=== PATIENT | female | born 1980 ===

== ENCOUNTER 2020-09-26 17:26 | Observation (INO) | payer OTHER ==
[~2020-09-26] VITALS: Ht 167.6 cm; Wt 127.0 kg
[2020-09-26] MEDS ORDERED: VALIUM 2 MG TAB2 MG PO (17:46)
[2020-09-26] MEDS ORDERED: VRAYLAR3 MG PO (17:46)
[2020-09-26] MEDS ORDERED: BENTYL10 MG PO (17:46)
[2020-09-26 18:24] LABS: BASOPHILS 0.1 % (0-2); EOSINOPHILS 0.1 % (0-7); HEMATOCRIT 50.1 % (36.0-48.0); HEMOGLOBIN 17.1 g/dL (12-16); LYMPHOCYTE ABS# 1.82 10x3/uL (1.18-3.74); LYMPHOCYTES 13.1 % (15-50); MCH 32.4 pg (26.0-34.0); MCHC 34.1 g/dL (31.0-37.0); MCV 95.1 fL (80.0-100.0); MEAN PLATELET VOLUME 10.2 fL (7.4-10.4); MONOCYTES 2.3 % (2-11); NEUTROPHIL ABS# 11.63 10x3/uL (1.56-6.13); NEUTROPHILS 83.4 % (40-80); RBC 5.27 10x6/uL (4.00-5.40); RDW 12.5 % (11.5-14.5); WBC 13.9 10x3/uL (4.8-10.8)
[2020-09-26 18:25] LABS: PLATELET COUNT 302 10x3/uL (130-400)
[2020-09-26 18:36] LABS: CALC OSMOLALITY 269 mosm/kg (275-300); CALCIUM 9.3 mg/dL (8.5-10.1); CARBON DIOXIDE 26.2 mmol/L (21.0-32.0); CHLORIDE - SERUM 97 mmol/L (98-107); POTASSIUM - SERUM 3.5 mmol/L (3.5-5.1); SODIUM 134 mmol/L (136-145); UREA NITROGEN 10 mg/dL (7-18); eGFR NON AFRICAN AMERICAN 65 mL/min (90-120)
[2020-09-26 18:39] LABS: GLUCOSE 147 mg/dL (74-106)
[2020-09-26 18:41] LABS: ALKALINE PHOSPHATASE 75 U/L (30-120); ALT (SGPT) 68 U/L (10-68); AMYLASE - SERUM 47 U/L (25-115); BILIRUBIN - TOTAL 0.48 mg/dL (0.2-1.3); LIPASE 63 U/L (73-393)
[2020-09-26 18:42] LABS: TROPONIN-I < 0.017 ng/mL (0.000-0.060)
[2020-09-26 19:01] VITALS: BP 177/92
[2020-09-26 20:11] LABS: BILIRUBIN NEGATIVE (NEGATIVE); KETONE LARGE mg/dL (NEGATIVE); NITRITE NEGATIVE (NEGATIVE); UROBILINOGEN NORMAL mg/dL (< 2)
[2020-09-26 20:12] LABS: BACTERIA FEW HPF (NONE SEEN); SQUAMOUS EPITHELIAL 0-5 HPF (0-4); WHITE CELLS - URINE 0-5 HPF (0-4)
[2020-09-26] MEDS ORDERED: ZOFRAN ODT4 MG/UDTAB PO (20:25)
[2020-09-26 20:31] VITALS: BP 183/96
[2020-09-26 20:56] LABS: HCG URINE NEGATIVE (NEGATIVE)
[2020-09-26 21:31] VITALS: BP 178/87
[2020-09-26 22:01] VITALS: BP 166/64
--- NOTE | 2020-09-26 23:30 | NUR ---
PATIENT CONTINUES TO HAVE N/V. NEW ORDERS RECIEVED FOR ZOFRAN DRIP AND PHENERGAN AND GIVEN
[2020-09-26 23:31] VITALS: BP 146/81
--- NOTE | 2020-09-27 02:51 | NUR ---
REPORT GIVEN TO [employer]
[2020-09-27 03:50] VITALS: BP 146/81; BMI 45.3
[2020-09-27 05:20] LABS: BASOPHILS 0.1 % (0-2); EOSINOPHILS 0 % (0-7); HEMATOCRIT 44.2 % (36.0-48.0); HEMOGLOBIN 14.9 g/dL (12-16); IMMATURE GRANULOCYTES 0.9 % (0-5); LYMPHOCYTE ABS# 3.63 10x3/uL (1.18-3.74); LYMPHOCYTES 24.2 % (15-50); MCHC 33.7 g/dL (31.0-37.0); MCV 95.1 fL (80.0-100.0); MEAN PLATELET VOLUME 10.5 fL (7.4-10.4); MONOCYTES 6.7 % (2-11); NEUTROPHIL ABS# 10.23 10x3/uL (1.56-6.13); NEUTROPHILS 68.1 % (40-80); PLATELET COUNT 310 10x3/uL (130-400); RBC 4.65 10x6/uL (4.00-5.40); RDW 12.6 % (11.5-14.5)
[2020-09-27 05:36] LABS: APTT 27.6 SECONDS (22.8-39.4); INR 1.13 (0.85-1.17); PROTIME 13.4 SECONDS (11.6-15.0)
[2020-09-27 05:44] LABS: ALBUMIN 3.3 g/dL (3.4-5.0); ANION GAP 14.3 mmol/L (8-16); BILIRUBIN - TOTAL 0.51 mg/dL (0.2-1.3); CARBON DIOXIDE 24.8 mmol/L (21.0-32.0); CREATININE - SERUM 0.9 mg/dL (0.6-1.3); MAGNESIUM - SERUM 1.9 mg/dL (1.8-2.4); POTASSIUM - SERUM 3.1 mmol/L (3.5-5.1); PROTEIN - SERUM 6.8 g/dL (6.4-8.2)
[2020-09-27 08:03] VITALS: BP 158/94
[2020-09-27 12:01] VITALS: BP 183/76
[2020-09-27 12:15] LABS: UDS - AMPHET NEGATIVE QUAL (NEGATIVE); UDS - BARB NEGATIVE QUAL (NEGATIVE); UDS - BENZO NEGATIVE QUAL (NEGATIVE); UDS - COCAINE NEGATIVE QUAL (NEGATIVE); UDS - OPIATE NEGATIVE QUAL (NEGATIVE); UDS - PCP NEGATIVE QUAL (NEGATIVE); UDS - THC POSITIVE QUAL (NEGATIVE)
--- NOTE | 2020-09-27 12:18 | NUR ---
PATIENT LYING SEMI FOWLERS AAOX4, NO S/S OF DISTRESS, RESP EVEN AND NON LABORED, MEDICATIONS ADMINISTERED WITH NO COMPLICATIONS, NO NEEDS AT THIS TIME, CLIR, BLP
[2020-09-27 12:43] VITALS: BMI 45.2
[2020-09-27 15:58] VITALS: BP 129/66
--- NOTE | 2020-09-27 18:00 | NUR ---
I have reviewed this patient and I concur with the Shift Assessment completed by the Licensed Practical Nurse today this shift.
--- NOTE | 2020-09-27 19:30 | NUR ---
RECEIVED REPORT, WILL ASSUME CARE OF PT, ASKING TO TAKE SHOWER, DISCONNECTED IV, WRAP IV, WILL CONTINUE PLAN OF CARE
[2020-09-27 19:57] VITALS: Ht 167.6 cm; Wt 127.0 kg
[2020-09-27 20:09] VITALS: BP 146/82
--- NOTE | 2020-09-27 22:55 | NUR ---
REVIEWED PT LABS K+3.1, FOLLOWED PROTCOL, WILL PLACE ON TELEMTRY ORDERED
[2020-09-28 01:28] VITALS: BP 129/73
--- NOTE | 2020-09-28 02:53 | NUR ---
I have reviewed this patient and I concur with the Shift Assessment completed by the Licensed Practical Nurse today this shift.
[2020-09-28 05:00] LABS: BASOPHILS 0.1 % (0-2); EOSINOPHILS 0.5 % (0-7); HEMOGLOBIN 13.7 g/dL (12-16); IMMATURE GRANULOCYTES 0.8 % (0-5); LYMPHOCYTES 47.1 % (15-50); MCH 32.1 pg (26.0-34.0); MCHC 33.4 g/dL (31.0-37.0); MEAN PLATELET VOLUME 10.2 fL (7.4-10.4); MONOCYTES 9.2 % (2-11); NEUTROPHIL ABS# 3.68 10x3/uL (1.56-6.13); NEUTROPHILS 42.3 % (40-80); RBC 4.27 10x6/uL (4.00-5.40); RDW 12.9 % (11.5-14.5)
[2020-09-28 05:07] LABS: PLATELET COUNT 246 10x3/uL (130-400); WBC 8.7 10x3/uL (4.8-10.8)
[2020-09-28 05:29] VITALS: BP 119/60
[2020-09-28 05:29] LABS: ALBUMIN 2.8 g/dL (3.4-5.0); ALKALINE PHOSPHATASE 50 U/L (30-120); ALT (SGPT) 62 U/L (10-68); BILIRUBIN - TOTAL 0.45 mg/dL (0.2-1.3); CALC OSMOLALITY 275 mosm/kg (275-300); CALCIUM 8.2 mg/dL (8.5-10.1); CARBON DIOXIDE 23.4 mmol/L (21.0-32.0); CHLORIDE - SERUM 108 mmol/L (98-107); CREATININE - SERUM 0.8 mg/dL (0.6-1.3); GLUCOSE 97 mg/dL (74-106); MAGNESIUM - SERUM 2.1 mg/dL (1.8-2.4); POTASSIUM - SERUM 3.5 mmol/L (3.5-5.1); PROTEIN - SERUM 5.8 g/dL (6.4-8.2); SODIUM 140 mmol/L (136-145); UREA NITROGEN 5 mg/dL (7-18); eGFR NON AFRICAN AMERICAN 84 mL/min (90-120)
--- NOTE | 2020-09-28 06:36 | NUR ---
I have reviewed this patient and I concur with the Shift Assessment completed by the Licensed Practical Nurse today this shift.
[2020-09-28 08:00] VITALS: BP 130/69
[2020-09-28 08:13] LABS: HEPATITIS C ANTIBODY <0.1 (0.0-0.9)
[2020-09-28 11:00] VITALS: BP 143/77
--- NOTE | 2020-09-28 12:32 | NUR ---
I have reviewed this patient and I concur with the Shift Assessment completed by the Licensed Practical Nurse today this shift.
--- NOTE | 2020-09-28 14:11 | NUR ---
PATIENT AAOX4, RESP EVEN AND NON LABORED, NO S/S OF DISTRESS, PATIENT STATES SHE FEELS BETTER TODAY AND HAS BEEN ABLE TO KEEP FOOD AND LIQUIDS DOWN, PATIENT IS NPO FOR EGD TODAY, IV MEDICATIONS ADMINISTERED, NO FURTHER NEEDS AT THIS TIME, PRISCILLA SANCHEZ
[2020-09-28] MEDS ORDERED: CARAFATE1 G PO (15:42)
[2020-09-28] MEDS ORDERED: NEXIUM40 MG PO (15:42)
[2020-09-28] MEDS ORDERED: ZOFRAN ODT4 MG/UDTAB PO (15:42)
--- NOTE | 2020-09-29 16:16 | OP ---
PATIENT NAME: VELIA TAPIA MEDICAL RECORD: [id number] :78 LOCATION:D.M2 D.2124 ADMISSION DATE:09/26/20 SURGEON: HARRIS AUGUSTE MD DATE OF OPERATION: 09/28/2020 PREOPERATIVE DIAGNOSES: 1. Intractable nausea and vomiting. 2. Epigastric abdominal pain. POSTOPERATIVE DIAGNOSES: 1. Intractable nausea and vomiting. 2. Epigastric abdominal pain. 3. Mild fundal gastritis, normal-appearing duodenum, moderate striped diffuse distal esophagitis of the last one-third of the esophagus suspicious for eosinophilic esophagitis. 4. Small hiatal hernia. PROCEDURE: Esophagogastroduodenoscopy with antral and random esophageal biopsies. SURGEON: Harris Auguste MD POCKET MACHINE OPERATOR: None. BLOOD LOSS: Minimal. ANESTHESIA: IV sedation. COMPLICATIONS: None. The patient gives a history of volume reflux, particularly at night. She states that sometimes she wakes up with a bitter taste in her mouth or having thrown up on her pillow. The risks, possible complications, and alternatives of the procedure were explained to the patient. She elected to proceed. ENDOSCOPIC COURSE: The patient was conveyed to the endoscopy suite electively on 09/28/2020. IV sedation was induced by the anesthesia staff. A bite block was inserted. A gastroscope was inserted into the mouth. It was advanced easily into the hypopharynx. The esophagus was easily intubated as were the stomach and duodenum. Upon withdrawal, retroflexed and angulus views were obtained. Antral biopsies were obtained. Random biopsies were obtained in the mid third and the lower third of the esophagus. The endoscope was then withdrawn under direct vision. There was a lot of swelling in the patient's oropharynx and hypopharynx. There was a lot of redundant tissue as well. I think it is very likely that she has sleep apnea. Also, I think the area is inflamed due to reflux up into the mouth. She had active reflux during the operative procedure with choking and coughing. I will see her in the office in 2 to 3 weeks. I am going to dismiss her home on Nexium and Carafate. I am specifically concerned that she may have eosinophilic esophagitis. TRANSINT:[id number] Voice Confirmation ID: [id number] DOCUMENT ID: [id number] OPERATIVE REPORT [id number] VELIA TAPIA ROBERT MD at 1616 CC: [id number] DICTATION DATE: 09/28/20 1648 GEOPHYSICAL LABORATORY CHIEF: 09/28/206 DIS IN 09/28/20 [id number] [place] [id number]
== END 2020-09-28 16:38 | disposition home or self-care (01) ==
LOC: D.ER 17:26 → D.EDHOLD 22:56 → OBSVTIME 22:56 → D.M2 22:56
PROVIDERS: Family Medicine; ADMIT Emergency Medicine; ATTEND Emergency Medicine
DX: R11.2 Nausea with vomiting, unspecified (principal); R10.13 Epigastric pain; K29.70 Gastritis, unspecified, without bleeding; K44.9 Diaphragmatic hernia without obstruction or gangrene; D72.829 Elevated white blood cell count, unspecified; E86.0 Dehydration; E87.1 Hypo-osmolality and hyponatremia